=== PATIENT | male | born 1980 | race Caucasian/White ===

== ENCOUNTER 2021-10-04 14:13 | Emergency (ER) | payer OTHER ==
[2021-10-04] MEDS ORDERED: LORazepam 1 MG TABLET PO ONE (14:45)
--- NOTE | 2021-10-04 15:21 | PHYS DOC ---
Adult General Chief Complaint Chief Complaint: ANXIETY/PANIC ATTACK HPI HPI Patient is a 41-year-old male presents to the emergency department complaining of an anxiety attack. Patient reports he started feeling his heart racing in the beginning of his attacks and is unable to calm himself down. Patient states these panic attacks have been recent. He does have a family history of panic and anxiety disorders reported in his sister is currently treated for anxiety panic attacks. Patient denies chest pains, shortness of breath, denies recent fever or chills. Denies any recent life-changing events, is unsure of his triggers. Patient reports he has white coat syndrome and his blood pressure goes "skyhigh along with my heart rate go brynn high when I am around medical people ". Patient denies homicidal or suicidal ideation, patient denies of the physical complaints or physical concerns (CRESENCIO CRISTOBAL APRN) Review of Systems Review of Systems 14 body systems of review of systems have been reviewed. See HPI for pertinent positives and negative responses, otherwise all other systems are negative, nonpertinent or noncontributory. Constitutional: Negative except as outlined in HPI above. Skin: Negative except as outlined in HPI above. Eyes: Negative except as outlined in HPI above. HENT: Negative except as outlined in HPI above. Respiratory: Negative except as outlined in HPI above. Cardiovascular: Negative except as outlined in HPI above. GI: Negative except as outlined in HPI above. : Negative except as outlined in HPI above. Musculoskeletal: Negative except as outlined in HPI above. Integument: Negative except as outlined in HPI above. Neurologic: Negative except as outlined in HPI above. Endocrine: Negative except as outlined in HPI above. Lymphatic: Negative except as outlined in HPI above. Psychiatric: Negative except as outlined in HPI above. (CRESENCIO CRISTOBAL APRN) Current Medications Current Medications Current Medications Medications (Trade) Dose Ordered Sig/Otdd Start Time Stop Time Status Last Admin Dose Admin Lorazepam (Ativan) 1 mg 1X ONCE 10/04/21 14:45 10/04/21 14:54 DC 10/04/21 15:12 1 MG (CRESENCIO CRISTOBAL APRN) Allergies Allergies Allergies Coded Allergies Type Severity Reaction Last Updated Verified No Known Drug Allergies 10/04/21 No (CRESENCIO CRISTOBAL APRN) Physical Exam Physical Exam Constitutional: Well developed, well nourished, no acute distress, non-toxic a ppearance. 41-year-old male is anxious in appearance. HENT: Normocephalic, atraumatic. Eyes: Conjunctiva normal, no discharge. Neck: Normal range of motion, no stridor. Cardiovascular: No cyanosis appreciated, distal cap refill less than 2 seconds. Lungs & Thorax: Patient is in no respiratory distress, no audible adventitious lung sounds appreciated. Abdomen: Nontender, no abnormalities noted. Skin: Warm, dry, no erythema, no rash. Back: No tenderness, no deformities. Extremities: No tenderness, no cyanosis, no clubbing, ROM intact, no edema. Neurologic: Alert and oriented X 3, normal motor function, normal sensory function, no focal deficits noted. Psychologic: Affect anxious, judgement normal, mood normal/Pleasant. (CRESENCIO CRISTOBAL APRN) EKG EKG EKG performed at 1451 by ED nursing staff shows a sinus tachycardia with leftward axis deviation heart rate of 132 bpm, GA interval 0.126, QTc interval 0.460, no acute STEMI, no ACS, no acute ischemia appreciated, EKG interpreted by ED attending physician Dr. Champion. (CRESENCIO CRISTOBAL APRN) Radiology/Procedures Radiology/Procedures [] (CRESENCIO CRISTOBAL APRN) Heart Score C/O Chest Pain: No Risk Factors: Risk Factors: DM, Current or recent (<one month) smoker, HTN, HLP, family history of CAD, obesity. Risk Scores: Risk Factors: DM, Current or recent (<one month) smoker, HTN, HLP, family history of CAD, obesity. (CRESENCIO CRISTOBAL APRN) Course & Med Decision Making Course & Med Decision Making Pertinent Labs and Imaging studies reviewed. (See chart for details) 41-year-old male, vital signs reviewed, presents emergency department concerning sudden onset of anxiety symptoms. Physical examination consistent with acute anxiety attack. Will give 1 mg Ativan. EKG related to tachycardia, will reassess after period of time. After period of time, patient's blood pressure has decreased from 171/111 down to 163/93, heart rate from 144 down to 91. Discussed with patient hypertensive blood pressures, patient reports he is supposed to take 25 mg of metoprolol daily however has not filled his medication in over a year. Discussed with patient will give 1 dose today in the emergency department, will prescribe a 30-day regimen of his blood pressure medications, strict follow-up with his primary care physician Dr. El to manage anxiety medications and ongoing prescriptions for blood pressure management. Patient is amenable to ED discharge planning. Discussed with the patient all findings and diagnostic testing as well as the need to follow-up with their primary care provider for further evaluation and treatment or return to the ED if any new or worsening symptoms. Strict return precautions were also discussed at length, the patient voiced understanding and agreement with the discharge planning. The patient was nontoxic in appearance, in no apparent distress, and hemodynamically stable at the time of disposition. (CRESENCIO CRISTOBAL APRN) Course & Med Decision Making I was the Attending physician on the above date of service of this patient. This patient was evaluated, examined, treated, and dispositioned from the emergency department by the mid-level practitioner. Although I was working at the time , no assistance was requested. Electronically signed, Janina Champion DO (JANINA CHAMPION DO) Zahra Disclaimer Dragon Disclaimer This electronic medical record was generated, in whole or in part, using a voice recognition dictation system. (CRESENCIO CRISTOBAL APRN) Departure Departure: Impression: Primary Impression: Anxiety Disposition: HOME / SELF CARE / HOMELESS Condition: GOOD Referrals: PCP,PATRICIA (PCP) PAULA EL MD Patient Instructions: Anxiety and Panic Attacks Additional Instructions: You were seen today in the emergency department for an acute anxiety attack. You were also treated today for high blood pressure. You were given 1 mg of Ativan for your anxiety and 25 mg of metoprolol for your blood pressure. As we discussed, please follow-up with Dr. El this week, preferably tomorrow so that he may manage your anxiety medications and write a prescription for your ongoing blood pressure management. Please return to the emergency department for worsening symptoms or other concerns. Thank you for visiting our Emergency Department. It was a pleasure taking care of you today in the emergency department and we appreciate you trusting us with your care. If any additional problems come up don't hesitate to return to visit us. Please follow up with your primary care provider so they can plan additional care if needed and know about the problem that you had. If symptoms worsen come back to the Emergency Department. Any concerning symptoms that start such as chest pain, shortness of air, weakness or numbness on one side of the body, running high fevers or any other concerning symptoms return to the ER. EMERGENCY DEPARTMENT GENERAL DISCHARGE INSTRUCTIONS Thank you for coming to [facility] (ED) today and trusting us with you care. We trust that you had a positivie experience in our Emergency Department. If you wish to speak to the department management, you may call the director at [phone]. YOUR FOLLOW UP INSTRUCTIONS ARE FOLLOWS: 1. Do you have a private Doctor? If you do not have a private doctor, please ask for a resource list of physicians or clinics that may be able to assist you with follow up care. 2. The Emergency Physician has interpreted your x-rays. The X-Ray specialist will also review them. If there is a change in the findings, you will be notified in 48 hours when at all possible. 3. A lab test or culture has been done, your results will be reviewed and you will be notified if you need a change in treatment. ADDITIONAL INSTRUCTIONS AND INFORMATION: 1. Your care today has been supervised by a physician who is specially trained in emergency care. Many problems require more than one evaluation for a complete diagnosis and treatment. We recommend that you schedule your follow up appointment as recommended to ensure complete treatment of you illness or injury. If you are unable to obtain follow up care and continue to have a problem, or if your condition worsens, we recommend that you return to the ED. 2. We are not able to safely determine your condition over the phone nor are we able to give sound medical advice over the phone. For these safety reasons, if you call for medical advice we will ask you to come to the ED for further evaluation. 3. If you have any questions regarding these discharge instructions please call the ED at [phone]. SAFETY INFORMATION: In the interest of safety, wellness, and injury prevention; we encourage you to wear your sealbelt, if you smoke; quite smoking, and we encourage family to use a protective helmet for bicycling and other sporting events that present an increased risk for head injury. IF YOUR SYMPTOMS WORSEN OR NEW SYMPTOMS DEVELOP, OR YOU HAVE CONCERNS ABOUT YOUR CONDITION; OR IF YOUR CONDITION WORSENS WHILE YOU ARE WAITING FOR YOUR FOLLOW UP APPOINTMENT; EITHER CONTACT YOUR PRIMARY CARE DOCTOR, THE PHYSICIAN WHOSE NAME AND NUMBER YOU WERE GIVEN, OR RETURN TO THE ED IMMEDIATELY. Scripts Metoprolol Succinate (METOPROLOL SUCCINATE ( XL )) 25 Mg Tab.er.24h 25 MG PO DAILY for FOR HYPERTENSION, #30 TAB 0 Refills Prov: CRESENCIO CRISTOBAL APRN 10/04/21 CRESENCIO CRISTOBAL APRN Oct 04, 2021 15:21 JANINA CHAMPION DO Oct 05, 2021 07:05
--- NOTE | 2021-10-04 15:33 | EKG ---
[address] [address] Test Date: 2021-10-04 Test Time: 14:51:11 Pat Name: MOOKIE SU Department: Room: Gender: M [employer] Analyst: AFSHIN : 1980 Requested By: CRESENCIO CRISTOBAL Order Number: [id number] Reading MD: Omkar Da Silva Measurements Intervals [place] Rate: 132 P: -54 [place]: 126 QRS: -10 QRSD: 90 T: 12 QT: 308 QTc: 460 Interpretive Statements SINUS TACHYCARDIA LEFTWARD AXIS Electronically Signed On 10-09-2021 9:39:29 OVEREDGE SEWER by Omkar Da Silva
[2021-10-04] MEDS ORDERED: METOPROLOL SUCC 24HR ER 25 MG TAB.ER.24H. PO ONE (15:45)
[2021-10-04] MEDS ORDERED: METO-239 PO (15:51)
[2021-10-04 16:04] VITALS: BP 164/93
== END 2021-10-04 16:04 | disposition home or self-care (01) ==
LOC: ER 14:13
DX: F41.9 Anxiety disorder, unspecified (principal)
CPT/HCPCS: 93005; 99283